=== PATIENT | male | born 2000 ===

== ENCOUNTER 2022-04-22 21:15 | Day surgery (SDCO) | payer OTHER ==
[~2022-04-22] VITALS: Ht 167.6 cm; Wt 66.8 kg
[2022-04-22 23:59] LABS: BASOPHIL 0.2 % (0-2); EOSINOPHIL 0 % (0-5); HCT 44.4 % (42.0-52.0); HGB 15.4 g/dl (13.2-18.0); LYMPHOCYTE 3.5 % (15-48); MCH 32.2 pg (25.0-31.0); MCHC 34.7 g/dL (32.0-36.0); MCV 92.9 fL (78.0-100.0); MONOCYTE 5.5 % (0-12); MPV 11.1 fL (6.0-9.5); NEUTROPHIL 90.4 % (41-80); NRBC 0; PLT 154 K/uL (150-400); RBC 4.78 M/uL (4.70-6.00); RDW 11.9 % (11.5-14.0); WBC 19.1 K/uL (4.0-10.5)
[2022-04-23 00:36] LABS: LACTIC ACID 0.8 mmol/L (0.4-1.9)
[2022-04-23 00:38] LABS: ALBUMIN 4.2 g/dL (3.4-5.0); BILIRUBIN - TOTAL 1.7 mg/dL (0.2-1.0); BUN/CREAT RATIO (CALC) 15.4 RATIO; CREATININE 0.78 mg/dL (0.67-1.17); GLOBULIN (CALCULATION) 2.7 g/dL; POTASSIUM 3.2 mmol/L (3.5-5.1); TOTAL PROTEIN 6.9 g/dL (6.4-8.2)
[2022-04-23 00:55] LABS: CORONAVIRUS 2019 SARS-COV-2 NEGATIVE (NEGATIVE); INFLUENZA A NAA NEGATIVE (NEGATIVE)
[2022-04-23 02:10] LABS: BILIRUBIN NEGATIVE (NEGATIVE); BLOOD NEGATIVE Ery/uL (NEGATIVE); CLARITY CLEAR (CLEAR); COLOR YELLOW (YELLOW); GLUCOSE (U) NORMAL (NORMAL); LEUKOCYTES NEGATIVE Leu/uL (NEGATIVE); NITRITE NEGATIVE (NEGATIVE); PROTEIN NEGATIVE (NEGATIVE); SPECIFIC GRAVITY 1.025 (1.001-1.030); UROBILINOGEN 0.2 mg/dL (0.2-1.0)
--- NOTE | 2022-04-23 20:39 | NUR ---
PATIENT'S COLLEGUE/ FAMILY MEMBER EXPRESSED TO RN THAT THEY WERE WORRIED ABOUT COVERING THE COST OF THE PATIENT'S HOSPITAL STAY DUE TO HIM NOT HAVING INSURANCE. FAMILY MEMEBR WANTS TO BE CONTACTED TO DISCUSS THIS INFORMATION HE STATES THAT PATIENT DOES NOT UNDERSTAND INSURANCE AND BILLING. PATIENT FAMILY MEMBERS NAME IS JODY AND CELL # IS
--- NOTE | 2022-04-23 22:03 | NUR ---
SPOKE WITH PATIENT USING COMPLIANCE TESTING ANALYST DEVICE, EXPLAINED TO THE PATIENT THAT 'S PLAN IS TO CONTINUE WITH ANTIBIOTICS WITHOUT SURGERY AT THIS TIME. PATIENT WILL REMIAN NPO THROUGHOUT THE NIGHT AND POSSIBLY BE STARTED ON A DIET TOMORROW LONG PATIENT DOES NOT BECOME SICK OVERNIGHT.
[2022-04-24 06:41] LABS: HGB 12.7 g/dl (13.2-18.0); MCH 32.2 pg (25.0-31.0); MCHC 33.4 g/dL (32.0-36.0); MCV 96.4 fL (78.0-100.0); MPV 11.4 fL (6.0-9.5); RBC 3.94 M/uL (4.70-6.00); RDW 12.3 % (11.5-14.0); WBC 11.7 K/uL (4.0-10.5)
[2022-04-24 07:09] LABS: ALBUMIN 2.8 g/dL (3.4-5.0); BILIRUBIN - DIRECT 0.3 mg/dL (0.00-0.20); BILIRUBIN - TOTAL 1.7 mg/dL (0.2-1.0); CREATININE 0.92 mg/dL (0.67-1.17); POTASSIUM 3.7 mmol/L (3.5-5.1); TOTAL PROTEIN 5.8 g/dL (6.4-8.2)
--- NOTE | 2022-04-24 14:34 | NUR ---
04/24/22 Mr. 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 He is not insured. The director of financial aid has made application for Medicaid. This will give him Medicaid for 30 days only. Mr. Dany Hough was educated to the [facility].
[2022-04-25 06:18] LABS: HCT 37.3 % (42.0-52.0); HGB 12.6 g/dl (13.2-18.0); MCH 32.6 pg (25.0-31.0); MCHC 33.8 g/dL (32.0-36.0); MCV 96.6 fL (78.0-100.0); MPV 11.1 fL (6.0-9.5); RBC 3.86 M/uL (4.70-6.00); RDW 12.3 % (11.5-14.0); WBC 8.6 K/uL (4.0-10.5)
[2022-04-25 06:43] LABS: IRON % SATURATION 11.6 %SAT (20-50)
[2022-04-25 07:14] LABS: ALBUMIN 2.7 g/dL (3.4-5.0); BILIRUBIN - TOTAL 1.2 mg/dL (0.2-1.0); BUN/CREAT RATIO (CALC) 5.1 RATIO; CREATININE 0.79 mg/dL (0.67-1.17); GLOBULIN (CALCULATION) 2.8 g/dL; POTASSIUM 3.6 mmol/L (3.5-5.1); TOTAL PROTEIN 5.5 g/dL (6.4-8.2)
[2022-04-25] MEDS ORDERED: FOLIC ACID1 MG PO (11:09)
[2022-04-25] MEDS ORDERED: NAPROSYN250 MG PO (11:09)
[2022-04-25] MEDS ORDERED: FLORASTOR250 MG PO (11:09)
[2022-04-25] MEDS ORDERED: AUGMENTIN 500-1 EACH PO (11:09)
--- NOTE | 2022-04-25 11:39 | NUR ---
04/25/22 Mr. Saenz reports to have money to afford his medications. A [employer] discount card was provided.
== END 2022-04-25 15:34 | disposition home or self-care (01) ==
LOC: FER 21:15 → FMS 04-23 02:34
PROVIDERS: Family Medicine; Physician Assistant; ADMIT Internal Medicine
DX: K35.32 Acute appendicitis with perforation, localized peritonitis, and gangrene, without abscess (principal); D64.9 Anemia, unspecified; D69.6 Thrombocytopenia, unspecified; Z20.822 Contact with and (suspected) exposure to COVID-19
CPT/HCPCS: 36415; 80048; 80053; 80076; 81003; 82607; 83010; 83540; 83550; 83605; 83615; 85025; 94010; C9113; G0378; J1885; J2270; J2405; J2543; J3420; J7030; Q9967; U0002